=== PATIENT | male | born 1955 | race Caucasian/White ===

== ENCOUNTER → 2023-01-18 | Outpatient (CLI) | payer MEDICARE, OTHER | END | disposition home or self-care (01) | LOC: PLD 09:52 → LAB SHORT 09:52 → LAB 09:52 | DX: L57.0 Actinic keratosis (principal) | CPT/HCPCS: 88305 ==

== ENCOUNTER → 2025-06-09 | Outpatient (CLI) | payer MEDICARE, OTHER | LOC: LAB SHORT 08:30 → LAB 08:30 | DX: L08.0 Pyoderma (principal) | CPT/HCPCS: 87070; 87205 ==